=== PATIENT | female | born 2000 | race Caucasian/White ===

== ENCOUNTER 2020-04-27 15:19 | Emergency (ER) | payer OTHER, SELFPAY ==
[2020-04-27 15:32] VITALS: BP 134/81; PULSE 84; RESP 16; TEMP 37.4; O2SAT 100
--- NOTE | 2020-04-27 15:47 | ED.GENADULT ---
HPI - General Adult General Chief complaint: Upper Respiratory Infection Stated complaint: Stuffy Nose Time Seen by Provider: 04/27/20 15:24 History of Present Illness HPI narrative: This is a 19-year-old white female who presented to the urgent care today complaining of congestion, sore throat, nausea, poor appetite, nausea and chills. Patient noted about 4 days ago she started experiencing symptoms and took Tylenol at home with no relief patient noted that she did take her temperature was 97.8 but she has been having chills. She has also been having shortness of breath that worsened when she lies down she did note that she has a history of having shortness of breath while lying down due to congestion. The patient denies , CP, palpitation, extremity numbness, lightheadedness, dizziness, constipation, and diarrhea. Patient tested negative for strep and influenza which is saving the next Related Data Allergies Allergy/AdvReac Type Severity Reaction Status Date / Time No Known Allergies Allergy Verified 04/27/20 15:47 Review of Systems Review of Systems: All systems reviewed & are unremarkable except as noted in HPI and below (10 point system review) Exam Narrative: Exam Narrative: GENERAL: This is a well-nourished, well-developed patient, in no apparent distress. HEAD: normocephalic, atraumatic. EYES: PERRL. Sclera clear/white. Vision is grossly intact. Frontal sinus tenderness EARS: External ears normal, auditory canals clear and without drainage, TMs normal without perforation. Hearing grossly intact. NOSE: External nose normal with, 3 views, lumbar with rhinorrhea. THROAT: Mucous membranes moist, posterior pharynx clear. NECK: Neck supple, , masses or thyromegaly maxillary sinus tenderness CARDIOVASCULAR: Regular rate and rhythm without murmurs, gallops, or rubs. RESPIRATORY: Clear to auscultation. Breath sounds equal bilaterally. No wheezes, rales, or rhonchi. GASTROINTESTINAL: Abdomen soft, non-tender, nondistended. Bowel sounds are active. No hepato-splenomegaly, or palpable masses. No guarding. SKIN: warm, intact with no suspicious lesions or rash, good texture and turgor. NEURO: awake, alert, and oriented to person, place and time. There were no obvious focal neurologic abnormalities. Steady gait EXTREMITIES: Normal range of motion. No edema. No calf tenderness. Negative Homans sign bilaterally. BACK: Nontender without deformity or crepitance. No flank tenderness. Const: General: no acute distress Course Course Emergency Course: Patient will discharge with amoxicillin for 7 days and Sudafed Vital Signs Vital signs: Vital Signs Temperature 99.4 F 04/27/20 15:32 Pulse Rate 84 04/27/20 15:32 Respiratory Rate 16 04/27/20 15:32 Blood Pressure 134/81 04/27/20 15:32 Pulse Oximetry 100 04/27/20 15:32 Temperature 99.4 F 04/27/20 15:32 Pulse Rate 84 04/27/20 15:32 Respiratory Rate 16 04/27/20 15:32 Blood Pressure 134/81 04/27/20 15:32 Pulse Oximetry 100 04/27/20 15:32 Medical Decision Making Differential Diagnosis Differential Diagnosis: Upper respiratory infection/sinusitis/flu/strep Vital Signs Vital Signs: Vital Signs Temperature 99.4 F 04/27/20 15:32 Pulse Rate 84 04/27/20 15:32 Respiratory Rate 16 04/27/20 15:32 Blood Pressure 134/81 04/27/20 15:32 Pulse Oximetry 100 04/27/20 15:32 Temperature 99.4 F 04/27/20 15:32 Pulse Rate 84 04/27/20 15:32 Respiratory Rate 16 04/27/20 15:32 Blood Pressure 134/81 04/27/20 15:32 Pulse Oximetry 100 04/27/20 15:32 Lab Data Labs: Influenza A Screen Negative Reference Range: Negative Influenza B Screen Negative Reference Range: Negative Strep Screen Presumptive Negative *(Reference Range: Negative)* Discharge Plan Discha
== END 2020-04-27 16:04 | disposition home or self-care (01) ==
PROVIDERS: Emergency Provider Nurse Practitioner
DX: J01.10 Acute frontal sinusitis, unspecified (principal)
CPT/HCPCS: 87081; 87804; 87880; 99203; G0463

== ENCOUNTER 2020-08-30 19:37 | Emergency (ER) | payer OTHER, SELFPAY ==
[2020-08-30 19:47] VITALS: BP 154/84; PULSE 78; RESP 16; TEMP 37.2; O2SAT 100
--- NOTE | 2020-08-30 19:59 | ED.WOUNDLAC ---
HPI - Wound/Laceration General Chief Complaint: Wound/Laceration Stated Complaint: Cyst Source: patient Mode of arrival: ambulatory Limitations: no limitations History of Present Illness HPI narrative: Patient is a 20-year-old female who presents complaining of abscess to right groin. She reports abscess x1 week. Reports a history of abscesses in the past. She denies drainage. She reports warmth and tenderness. She denies all other complaints at this time. She has no allergies and no significant medical history. Related Data Allergies Allergy/AdvReac Type Severity Reaction Status Date / Time No Known Allergies Allergy Verified 04/27/20 15:47 Review of Systems Review of Systems: Narrative: CONSTITUTIONAL: Denies fever, chills, or sweats. EYES: Denies visual changes, redness, or discharge. ENT: Denies rhinorrhea, congestion, sore throat, or otalgia. CARDIOVASCULAR: Denies chest pain, palpitations, or edema. RESPIRATORY: Denies cough or dyspnea. GASTROINTESTINAL: Denies abdominal pain, nausea, vomiting, or diarrhea. GENITOURINARY: Denies dysuria or hematuria. SKIN: Abscess to right groin MUSCULOSKELETAL: Denies back pain, joint pain, or myalgia. NEUROLOGIC: Denies headache, numbness, dizziness, or weakness. PSYCHIATRIC: Denies anxiety or depression. [facility] Past Medical History Medical History (Updated 08/31/20 @ 00:00 by [facility]) No significant past medical history Surgical History Surgical History (Updated 08/30/20 @ 20:01 by AXEL Morton) No significant past surgical history Family History Family History (Updated 08/30/20 @ 20:01 by AXEL Morton) Other No significant family history Social History Social History (Updated 08/30/20 @ 20:01 by AXEL Morton) Smoking status: Never smoker Alcohol intake: never Substance use: never Living arrangements: with roommate(s) Occupation/Education: student Gender identity (if verbalized by the patient): Female Comments At the time of signature, I have reviewed and agree with nursing past medical, surgical, social, and family history unless otherwise noted. Please see nursing chart for further information. There is no relevant family history pertinent to the presenting complaint. Exam Narrative: Exam Narrative: GENERAL: Well-appearing, well-nourished, and in no acute distress. HEAD: Normocephalic, atraumatic. EYES: EOMI. No redness or drainage. Conjunctiva are normal. ENT: Mucous membranes pink and moist. CHEST: No respiratory distress. HEART: Regular rate and rhythm. MUSCULOSKELETAL: No bony tenderness. EXTREMITIES: Normal range of motion. No edema. SKIN: Approximate 5 x 3 cm abscess to right groin, positive fluctuance, no drainage noted NEURO: No focal deficits. Alert and oriented x3. Gait steady. PSYCH: Normal affect. No signs of depression or anxiety. Course Vital Signs Vital signs: Vital Signs Temperature 37.2 C 08/30/20 19:47 Pulse Rate 78 08/30/20 19:47 Respiratory Rate 16 08/30/20 19:47 Blood Pressure 154/84 H 08/30/20 19:47 Pulse Oximetry 100 08/30/20 19:47 Temperature 37.2 C 08/30/20 19:47 Pulse Rate 78 08/30/20 19:47 Respiratory Rate 16 08/30/20 19:47 Blood Pressure 154/84 H 08/30/20 19:47 Pulse Oximetry 100 08/30/20 19:47 Reviewed-patient is informed that they may have pre-hypertension or hypertension based on a blood pressure reading. I recommend the patient call the primary care provider listed on their discharge instructions or a physician of their choice this week to arrange follow-up for further evaluation of possible pre-hypertension or hypertension. Procedures Abscess I/D other: Date of Incision: 08/30/20 Time of Incision: 20:00 Side (if applicable): right Sedation/analgesia: none Local Anesthetic: lidocaine 1% Amount of anesthesia used (mL): 5 Technique: incised with #11 blade Amount of fluid ex
== END 2020-08-30 20:14 | disposition home or self-care (01) ==
PROVIDERS: Emergency Provider Nurse Practitioner
DX: L02.214 Cutaneous abscess of groin (principal)
CPT/HCPCS: 10060; 99213; G0463

== ENCOUNTER 2021-05-19 14:11 | Emergency (ER) | payer OTHER, SELFPAY ==
[2021-05-19 14:18] VITALS: BP 143/92; PULSE 87; RESP 18; TEMP 37.2; O2SAT 100
--- NOTE | 2021-05-19 14:19 | ED.BACK ---
HPI - Back Pain/Injury General Chief Complaint: Back Pain/Injury Stated Complaint: Back Pain Time Seen by Provider: 05/19/21 14:19 Source: patient, RN notes reviewed and old records reviewed Mode of arrival: ambulatory Limitations: no limitations History of Present Illness HPI Narrative: 21-year-old female presents to the [facility] with complaints of lower back pain for several days. Patient states is been getting worse over the last week or so. Has been doing pottery with a pottery wheel and bent over and every time the pain increases, worse on the right than the left. No saddle anesthesia. No loss or retention of bowel or bladder. States occasionally she has shooting pain down the lateral aspect right leg. Denies chest pain, abdominal pain. No urinary symptoms. Related Data Home Medications Medication Instructions Recorded Confirmed adalimumab [Humira(CF) Pen] 80 mg SUBCUT DIRECTED 05/19/21 05/19/21 fluticasone propionate 50 mcg INTRANASAL DIRECTED 05/19/21 05/19/21 Allergies Allergy/AdvReac Type Severity Reaction Status Date / Time No Known Allergies Allergy Verified 05/19/21 14:15 Review of Systems Review of Systems: All systems reviewed & are unremarkable except as noted in HPI and below Constitutional: Constitutional: Reports no additional constitutional complaints, Denies chills and Denies fever(s) Eyes: Eyes: Reports no additional eye complaints ENT: Reports system reviewed and no additional complaints, except as documented Cardiovascular: Cardiovascular: Reports no additional cardiovascular complaints Gastrointestinal: Gastrointestinal: Reports no additional gastrointestinal complaints, Denies abdominal pain, Denies diarrhea, Denies nausea and Denies vomiting Genitourinary: Genitourinary: Reports no additional female genitourinary complaints, Denies nocturia, Denies dysuria, Denies flank pain and Denies urinary incontinence Musculoskeletal: Musculoskeletal: Reports as per HPI and Reports back pain Integumentary/Breasts: Skin/Breast: Reports system reviewed and no additional complaints, except as docu Neurologic: Reports system reviewed and no additional complaints, except as documented Psychiatric: Psychiatric: Reports no additional psychiatric complaints Allergic/Immunologic: Allergic/Immunologic: Reports no additional allergic/immunologic complaints PMFSH Past Medical History Medical History (Updated 05/19/21 @ 14:26 by Cayla Torres) No significant past medical history Surgical History Surgical History No significant past surgical history Family History Family History Other No significant family history Social History Social History Smoking status: Never smoker Alcohol intake: never Substance use: never Gender identity (if verbalized by the patient): Female Comments At the time of my signature, I reviewed and agree with the nursing past medical, surgical, social, and family history. There is no relevant family history pertinent to the patient complaint. Exam Const: General: no acute distress and alert Nutritional Appearance: well nourished and obese Orientation/consciousness: patient oriented x3 Limitations: no limitations HENMT: Head: normal to inspection Eyes: Pupils: Equal, round and reactive pupils present Neck: Neck: normal visual inspection, no lymphadenopathy and no meningeal signs Chest: Chest palpation & inspection: normal inspection of the chest Resp: Effort & Inspection: normal respiratory effort and no use of accessory muscles Auscultation: clear to auscultation bilaterally, no crackles, no rales, no rhonchi and no wheezes Cardio: Rate: regular rate Rhythm: regular rhythm GI: GI Palp: Yes Soft to palpation, No Tenderness to palpation present (GI), No Guarding due to palpation present (GI) an
== END 2021-05-19 14:30 | disposition home or self-care (01) ==
PROVIDERS: Emergency Provider Nurse Practitioner
DX: M54.42 Lumbago with sciatica, left side (principal)
CPT/HCPCS: 99213; G0463

== ENCOUNTER 2021-10-19 12:47 | Emergency (ER) | payer OTHER, SELFPAY ==
--- NOTE | ~2021-10-19 | XR_ITS ---
EXAMINATION: XR shoulder RT min 2V INDICATION: Right shoulder pain TECHNIQUE: Three views of the right shoulder are submitted. COMPARISON: None FINDINGS: Normal alignment. No fracture. Glenohumeral and acromioclavicular joint spaces are normal. Soft tissues are unremarkable. IMPRESSION: 1. No acute osseous abnormality. Reviewed, dictated and finalized at location F.
[2021-10-19 13:01] VITALS: PULSE 78; RESP 20; TEMP 37.1; O2SAT 100
--- NOTE | 2021-10-19 13:04 | ED.GENADULT ---
HPI - General Adult General Chief complaint: Extremity Problem,Nontraumatic Stated complaint: Right Shoulder Pain Time Seen by Provider: 10/19/21 13:05 Source: patient Mode of arrival: ambulatory Limitations: no limitations History of Present Illness HPI narrative: 21 y/o female presented for c/o right posterior shoulder/upper back pain after stretching this morning. States she stretched arms over head and behind back when the sharp pain started. Pain is 8/10, worse with any movement but not relieved at rest. Denies numbness, tingling or weakness of the RUE but endorses pain and is guarding. Has not taken anything for pain. Related Data Home Medications Medication Instructions Recorded Confirmed adalimumab [Humira(CF) Pen] 80 mg SUBCUT DIRECTED 05/19/21 10/19/21 bupropion HCl 300 mg PO BID 10/19/21 10/19/21 cetirizine mg 10/19/21 fluticasone propionate INTRANASAL 10/19/21 10/19/21 hydroxyzine HCl 10 mg PO DIRECTED 10/19/21 10/19/21 Allergies Allergy/AdvReac Type Severity Reaction Status Date / Time No Known Allergies Allergy Verified 10/19/21 12:50 Review of Systems Review of Systems: CONSTITUTIONAL: Denies body aches, fever, chills EYES: Denies visual changes ENT: Denies rhinorrhea, congestion CARDIOVASCULAR: Denies chest pain, palpitations, or edema. RESPIRATORY: Denies cough or dyspnea. GASTROINTESTINAL: Denies abdominal pain, nausea, vomiting, or diarrhea. SKIN: Denies rash, itching, or wounds. MUSCULOSKELETAL: right upper back pain NEUROLOGIC: Denies headache, numbness, tingling, or weakness. PSYCH: Denies depression or anxiety. All systems reviewed & are unremarkable except as noted in HPI and below PMFSH Past Medical History Medical History No significant past medical history Surgical History Surgical History No significant past surgical history Family History Family History Other No significant family history Social History Social History Smoking status: Never smoker Alcohol intake: never Substance use: never Gender identity (if verbalized by the patient): Female Comments At time of signature, I have reviewed and agree with nursing past medical, surgical, social and family history unless otherwise noted. Please see nursing chart for further information. There is no relevant family history pertinent to the presenting complaint Exam Narrative: GENERAL appears in pain, no acute distress. HEAD: Normocephalic, atraumatic. EYES: conjunctivae clear NECK: Supple. CHEST: Speaks in full sentences. No respiratory distress. HEART: Regular rate and rhythm. Normal and equal peripheral pulses. EXTREMITIES: RUE has limited active ROM at shoulder due to pain at posterior shoulder/ trap area. Tender with minimal palpation. No edema, lesions, or ecchymosis. No obvious deformity; alignment normal, pulse palpable and equal bilaterally, skin warm, dry, pink. Capillary refill less than 3 seconds. SKIN: Warm, dry, no rash. NEURO: Alert and oriented x3. PSYCH: Normal mood and affect Course Course Emergency Course: Patient is aware of diagnosis, understands and agrees to treatment plan. Anticipatory guidance given. Patient agrees to follow-up as directed and is aware of reasons to seek care at the emergency department. Portions of this record may have been created with voice recognition software Level of Care: Express Care Visit Vital Signs Vital signs: Vital Signs Temperature 98.8 F 10/19/21 13:01 Pulse Rate 78 10/19/21 13:01 Respiratory Rate 20 10/19/21 13:01 Pulse Oximetry 100 10/19/21 13:01 Temperature 98.8 F 10/19/21 13:01 Pulse Rate 78 10/19/21 13:01 Respiratory Rate 20 10/19/21 13:01 Pulse Oximetry 100 10/19/21 13:01
[2021-10-19] MEDS: KETOROLAC (*BKC) 60 MG/2 ML VIAL IM (13:19)
[2021-10-19] MEDS: ACETAMINOPHEN 500 MG TABLET 1000 MG PO (13:20)
== END 2021-10-19 14:30 | disposition home or self-care (01) ==
PROVIDERS: Emergency Provider Nurse Practitioner Family
DX: M25.511 Pain in right shoulder (principal)
CPT/HCPCS: 73030; 96372; 99213; A9270; G0463; J1885

== ENCOUNTER 2023-03-18 22:33 | Emergency (ER) | payer OTHER, SELFPAY ==
--- NOTE | ~2023-03-18 | CT_ITS ---
CT Facial Bones Clinical Indication: Head injury Technique: Contiguous axial scans were obtained through the facial bones followed by coronal and sagi ttal reconstructions. Dose reduction technique was used on this scan by utilizing automated exposure control and iterative reconstruction technique. The dose-length product (DLP) was 329.32 mGy-cm. Findings: Bilateral nasal bone fractures are present. No other fracture or dislocation. The visualize d paranasal sinuses are clear. Intraorbital soft tissues appear normal. Impression: Bilateral nasal bone fractures. Reviewed, dictated and finalized at location M. Impression: Bilateral nasal bone fractures.
--- NOTE | ~2023-03-18 | CT_ITS ---
Non-contrast Head CT History: Syncope, head injury Technique: Axial non-contrast imaging of the brain was performed. Dose reduction technique was used on this scan by utilizing automated exposure control and iterative reconstruction technique. The dose -length product (DLP) was 605.33 mGy-cm. Findings: There is no evidence of intracranial hemorrhage, mass lesion, or acute infarct. Brain par enchyma appears normal. The ventricles and subarachnoid spaces are normal in size. The calvarium ap pears normal. The visualized paranasal sinuses and mastoid air cells are clear. Impression: No significant abnormality seen. Reviewed, dictated and finalized at location . Impression: No significant abnormality seen.
--- NOTE | 2023-03-18 22:35 | ECG_ITS ---
Measurements Intervals [place] Rate: 51 P: 67 VA: 167 QRS: 42 QRSD: 103 T: 36 QT: 403 QTc: 374 Interpretive Statements SINUS BRADYCARDIA BASELINE ARTIFACT- I, II, III, AVR, AVL, AVF BORDERLINE ECG NO PREVIOUS ECG AVAILABLE FOR COMPARISON Electronically Signed On 03-19-2023 6:34:04 CDT by Cole Oden D.O.
[2023-03-18 22:37] VITALS: BP 103/49; PULSE 68; RESP 16; TEMP 36.2; O2SAT 100
--- NOTE | 2023-03-18 22:57 | ED.SYNCOPE ---
HPI - Syncope General Chief Complaint: Syncope Stated Complaint: syncopal episode- hit head Time Seen by Provider: 03/18/23 22:43 History of Present Illness HPI narrative: Patient presents to the emergency department with her friend from home. Patient cut her right palm and had a vasovagal syncopal episode. Patient fell onto her face. She was trying to sit down on a chair because she felt lightheaded when the rolling chair went out from underneath her. Patient had a bloody nose and cut her lip. She is still feeling very lightheaded. Pale appearing. Patient states she did eat dinner few hours prior to arrival Related Data Home Medications Medication Instructions Recorded Confirmed adalimumab 80 mg/0.8 mL 80 mg subcut DIRECTED 05/19/21 10/19/21 subcutaneous pen kit (Humira(CF) Pen) bupropion HCl 300 mg 24 hr tablet, 300 mg PO BID 10/19/21 10/19/21 extended release cetirizine 10 mg tablet mg 10/19/21 fluticasone propionate 50 intranasal 10/19/21 10/19/21 mcg/actuation nasal spray,suspension hydroxyzine HCl 10 mg tablet 10 mg PO DIRECTED 10/19/21 10/19/21 Allergies Allergy/AdvReac Type Severity Reaction Status Date / Time No Known Allergies Allergy Verified 10/19/21 12:50 Review of Systems Review of Systems: Review of systems negative except what is documented in the HPI [facility] Past Medical History Medical History No significant past medical history Surgical History Surgical History No significant past surgical history Family History Family History Other No significant family history Social History Social History Smoking status: Never smoker Alcohol intake: never Substance use: never Living arrangements: with roommate(s) Occupation/Education: student Gender identity (if verbalized by the patient): Female Exam Narrative: GENERAL: Well-appearing, well-nourished, and in no acute distress. Pale HEAD: Normocephalic, . EYES: PERRLA and EOMI. ENT: Nares clear, no rhinorrhea or epistaxis. Mucous membranes moist. Nose swollen, dried blood both nares NECK: Supple. CHEST: Clear to auscultation. No respiratory distress. HEART: Regular rate and rhythm. ABDOMEN: Soft, nontender, nondistended. EXTREMITIES: Normal range of motion. No edema. SKIN: Warm, dry, no rash. Superficial small laceration right thenar NEURO: No focal deficits. Alert and oriented x3. PSYCH: Normal mood and affect. Course Course Emergency Course: Differential diagnosis includes but not limited to vasovagal syncope, dehydration, nasal bone fracture Telemetry ordered due to syncope to evaluate for dysrhythmias. Evaluated by myself. Rhythm sinus hill Rate 53 Vital Signs Vital signs: Vital Signs Temperature 36.2 C L 03/18/23 22:37 Pulse Rate 68 03/18/23 22:37 Respiratory Rate 16 03/18/23 22:37 Blood Pressure 103/49 L 03/18/23 22:37 Pulse Oximetry 100 03/18/23 22:37 Oxygen Delivery Room Air 03/18/23 22:37 Temperature 36.2 C L 03/18/23 22:37 Pulse Rate 83 03/19/23 00:34 Respiratory Rate 12 03/19/23 00:34 Blood Pressure 116/58 L 03/19/23 00:34 Pulse Oximetry 100 03/19/23 00:34 Oxygen Delivery Room Air 03/18/23 23:21 MDM - Syncope MDM Narrative Medical decision making narrative: Patient is feeling better, no longer lightheaded. However has nose and facial pain despite p.o. pain medication. Will order IM morphine then plan for discharge. Nasal bone fracture present although unknown details due to preliminary radiology read. Patient advised to follow-up with plastic surgery to ensure healing well. She is eating and drinking without vomiting Lab Data Labs: UCG Bedside Result Negative
[2023-03-18 23:21] VITALS: O2SAT 100
--- NOTE | 2023-03-18 23:21 | PC.NURSE ---
Assumed care of pt from KRISTIN Ortiz at this time.
[2023-03-18] MEDS: HYDROcodone/acetaminophen (*CRX) 5-325 MG TABLET 1 TAB PO (23:54)
[2023-03-18 23:57] VITALS: BP 114/59; PULSE 80; RESP 20; O2SAT 100
[2023-03-19 00:34] VITALS: BP 116/58; PULSE 83; RESP 12; O2SAT 100
[2023-03-19] MEDS: MORPHINE SULFATE INJ (*CRX) 10 MG/ML AMP IM (01:02)
[2023-03-19 01:31] VITALS: BP 102/59; PULSE 64; RESP 19; O2SAT 98
== END 2023-03-19 01:34 | disposition home or self-care (01) ==
PROVIDERS: Emergency Provider Emergency Medicine
DX: S02.2XXA Fracture of nasal bones, initial encounter for closed fracture (principal); S09.90XA Unspecified injury of head, initial encounter; S61.411A Laceration without foreign body of right hand, initial encounter; W45.8XXA Other foreign body or object entering through skin, initial encounter; R55 Syncope and collapse; W18.39XA Other fall on same level, initial encounter; Z79.620 Long term (current) use of immunosuppressive biologic
CPT/HCPCS: 70450; 70486; 81025; 93005; 96372; 99284; A9270; J2270

== ENCOUNTER 2023-03-28 00:37 | Day surgery (SDC) | payer OTHER, SELFPAY ==
[2023-03-26 10:20] VITALS: BMI 34.9
--- NOTE | 2023-03-26 10:24 | PC.NURSE ---
Report to the Outpatient Waiting Room, entrance under the green pavilion located off [facility], at time 0900 on date 03/28/23. Planned Procedure Time: 1100. Time changes happen often and if your time is changed the preop area will call you the afternoon before. - You and your visitor will be asked to self-screen and do not enter if you have any COVID symptoms. - A mask is optional within the hospital at this time. Patients may have clear liquids (water, carbonated beverages, clear teas, apple juice) until 3 hours prior to surgery with a maximum of 20 ounces. - No food from midnight until time of surgery Take the following medications with a SIP of water the morning of surgery: NONE DO NOT STOP ANY OF YOUR OTHER PRESCRIPTION MEDICATIONS PRIOR TO SURGERY ?EXCEPT THE FOLLOWING Medications to discontinue per physician: N/A Date to take last dose: N/A Please no make-up, nail estonian, hairspray, perfume, deodorant, or body powder the day of surgery. No jewelry (including any body piercings) or valuables the day of surgery, leave them at home. Please take a shower or bath the night before, or the morning of, surgery with an antibacterial soap. Wear comfortable, loose fitting clothing. - Jewelry must be removed prior to entering the operating room. Rings and piercings that are not removed may be cut off. - The hospital will not accept responsibility for valuables. - Please leave all valuables, including medications, at home the day of surgery. If you are going home after surgery, a licensed uke driver must drive you home. - NO public transportation without another adult if you receive anesthesia. - We recommend that an adult stay with you for 24 hours following discharge. - We also recommend that you do not drive, make important decision, drink alcoholic beverages, or take any drugs that were not prescribed by your health care provider for at least 24 hours after your discharge time. Follow any additional instructions given to you from your surgeon. If you or anyone in your household have experienced Covid symptoms in the past week, please notify your surgeon or the nurse liaison at the phone number below for possible testing. Telephone instructions given to PT - SUMAN ARRIAGA and asked if any additional questions and then verbalized understanding. Patient advised to call surgeon office or pre surgery nurse liaison [phone] if any additional questions.
[2023-03-28] VITALS (7 sets, daily range): BP systolic 105–147; BP diastolic 62–97; PULSE 50–88; RESP 14–20; TEMP 36.1; O2SAT 96–100
--- NOTE | 2023-03-28 07:20 | WPDHPUPDATE1 ---
History and Physical Update Update Date/Time: 03/28/23 07:20 History and Physical has been reviewed, including an updated exam of the patient. There are NO changes in the patient's condition. Risks, benefits, and alternatives have been discussed and questions answered. Patient agrees to proceed with procedure.
[2023-03-28] MEDS: OXYMETAZOLINE HCL 0.05% NAS 15 ML BTL (*BKC) 1 SPRAY NASAL (09:41)
--- NOTE | 2023-03-28 09:45 | P.PNAN_ITS ---
Anes - Initial Pre Proc Eval Procedure: Operation Date: 03/28/23 11:00 Proposed Procedures p Closed Nose Reduction - Len Bejarano MD Date/Time: 03/28/23 09:45 Surgeon: Len Bejarano MD Pre Op Diagnosis: nasal fracture Patient Data Age: 22 Gender: F Height: 1.69 m Weight: 98.8 kg Last Vital Signs Temp 97.0 F L 03/28/23 09:29 Pulse 88 03/28/23 09:29 Resp 20 03/28/23 09:29 BP 147/97 H 03/28/23 09:29 Pulse Ox 100 03/28/23 09:29 O2 Del Method Room Air 03/28/23 09:29 Allergies Allergy/AdvReac Type Severity Reaction Status Date / Time No Known Allergies Allergy Verified 03/28/23 09:25 Home Medications Medication Instructions Recorded Confirmed Type hydroxyzine HCl 10 mg tablet 10 mg PO HS 10/19/21 03/26/23 History modafinil 100 mg tablet (Provigil) 200 mg PO DAILY 03/26/23 03/26/23 History Patient hx anesthesia problems: none Family hx anesthesia problems: none Results Review: All pre-operative results and documents have been reviewed as part of the pre- operative evaluation. [facility] Past Medical History Medical History No significant past medical history Surgical History Surgical History No significant past surgical history Family History Family History Other No significant family history Social History Social History Smoking status: Current every day smoker Tobacco type: e-cigarettes/vaping Alcohol intake: never Substance use: current Substance use type: marijuana Living arrangements: with family Occupation/Education: student Gender identity (if verbalized by the patient): Female Spiritual care concerns: No Anes - Eval Final PreProcedure Day of Procedure 03/28/23 09:45 Patient weight: obese Heart: regular rate and rhythm Lungs: clear to auscultation Neurological: alert and oriented Last oral intake: >/= 8 hours ASA classification: II Emergent: no Anesthetic plan: proceed Anesthesia type and monitoring: general ETT and standard monitoring Results Review: All pre-operative results and documents have been reviewed as part of the pre- operative evaluation. Informed Consent: The patient's anesthetic plan and its attendant risks and benefits were discussed with the patient/family/POA. Questions were solicited and answers provided to the satisfaction of the patient/family/POA.
[2023-03-28] MEDS: LACTATED RINGERS 1,000 ML 150 ML IV CONT (10:08)
--- NOTE | 2023-03-28 11:27 | W.PM.PROC2 ---
Procedure Note - Detailed Date of Procedure 03/28/23 Pre-op Diagnosis nasal fracture Post-op Diagnosis Same Procedure Performed Closed nasal fracture reduction Surgeon Len Bejarano MD Anesthesia MAC Description of Procedure The patient was greeted in the holding area. The problem with her nose we confirmed there was a light reflex curved to the left and decreased airway patency on the right. This understands will be straightening that from within. She was taken to the operating room where she was placed supine on the operating table. She was given sedation anesthesia with an oral airway and mask. The 2 vestibules were examined with a speculum. There was no bleeding. The septum appears straight the area of the internal valve was narrow were on the right than the left. The Killian elevator was inserted and pressure was applied dorsally and to the patient's right side this was done also on the left side. The light reflex was corrected. Speculum evaluation of the vestibule then indicated the 2 airways seemed symmetrical. There was no bleeding. Benzoin was applied to the skin over the nose and anterior cheeks 1/4 inch brown tape was applied to the nose transversely at 3 locations. A lymphoma splint was bent and applied to the face and Steri-Strips were placed to hold that in position. She tolerated this procedure well she was discharged from the operating room stable condition. Estimated Blood Loss 0 Packing No Complications No immediate complications Condition Stable Disposition Same day
[2023-03-28] MEDS: fentaNYL CITRATE INJ (*CRX) 100 MCG/2 ML VIAL 25 MCG IV PUSH ×6 (11:37→12:13)
[2023-03-28] MEDS: oxyCODONE HCL (*CRX) 5 MG TAB IR PO (12:11)
== END 2023-03-28 13:19 | disposition home or self-care (01) ==
PROVIDERS: Visit Provider Plastic Surgery
PROC: 0NSBXZZ Reposition Nasal Bone, External Approach (ICD-10-PCS; CPT 21315; principal; 2023-03-28 11:00)
DX: S02.2XXA Fracture of nasal bones, initial encounter for closed fracture (principal); W18.39XA Other fall on same level, initial encounter; F17.290 Nicotine dependence, other tobacco product, uncomplicated; F12.90 Cannabis use, unspecified, uncomplicated; E66.9 Obesity, unspecified; Z68.34 Body mass index [BMI] 34.0-34.9, adult
CPT/HCPCS: 21320; A9270; J1100; J2250; J2405; J2704; J3010; J7120

== ENCOUNTER 2023-07-07 14:52 | Emergency (ER) | payer OTHER, SELFPAY ==
[2023-07-07 14:57] VITALS: BP 112/86; PULSE 72; RESP 16; TEMP 37.9; O2SAT 100
--- NOTE | 2023-07-07 15:26 | ED.URI ---
HPI - URI/Sore Throat General Chief Complaint: Upper Respiratory Infection Stated Complaint: Shortness of breath;Chest pain Time Seen by Provider: 07/07/23 15:26 Source: patient, RN notes reviewed and old records reviewed Mode of arrival: ambulatory Limitations: no limitations History of Present Illness HPI Narrative: 23-year-old [facility] with complaints cough, congestion and fevers. Patient was evaluated on both July 04 and July 05 at [place] [facility]. Patient was prescribed Augmentin, prednisone and given albuterol inhaler. Patient comes to the [facility] with concerns that she is not better after starting the antibiotic and taking the prednisone for 2 days. Patient is running a low-grade fever. Has not been taking Tylenol or Motrin for aches pains or fevers Patient states the cough started 2 weeks ago, 1 week ago started with a fever Treatments prior to arrival: antibiotics (augmentin) and other (Albuterol and prednisone) Related Data Home Medications Medication Instructions Recorded Confirmed modafinil 100 mg tablet (Provigil) 200 mg PO DAILY 03/26/23 03/26/23 albuterol sulfate 90 mcg/actuation inhalation 07/07/23 aerosol inhaler amoxicillin 875 mg-potassium tablet 07/07/23 clavulanate 125 mg tablet prednisone 20 mg tablet mg 07/07/23 Allergies Allergy/AdvReac Type Severity Reaction Status Date / Time No Known Allergies Allergy Verified 03/28/23 09:25 Review of Systems Review of Systems: All systems reviewed & are unremarkable except as noted in HPI and below Constitutional: Constitutional: Reports as per HPI, Reports chills, Reports fatigue and Reports fever(s) Eyes: Eyes: Reports no additional eye complaints ENT: Reports as per HPI Cardiovascular: Cardiovascular: Reports no additional cardiovascular complaints, Denies chest pain and Denies dyspnea Respiratory: Respiratory: Reports as per HPI, Denies chest congestion, Reports cough and Denies dyspnea Gastrointestinal: Gastrointestinal: Reports no additional gastrointestinal complaints, Denies abdominal pain, Denies nausea and Denies vomiting Musculoskeletal: Musculoskeletal: Reports no additional musculoskeletal complaints Integumentary/Breasts: Skin/Breast: Reports system reviewed and no additional complaints, except as docu Neurologic: Reports system reviewed and no additional complaints, except as documented Psychiatric: Psychiatric: Reports no additional psychiatric complaints Allergic/Immunologic: Allergic/Immunologic: Reports no additional allergic/immunologic complaints PMFSH Past Medical History Medical History No significant past medical history Surgical History Surgical History No significant past surgical history Family History Family History Other No significant family history Social History Social History Smoking status: Current every day smoker Tobacco type: e-cigarettes/vaping Alcohol intake: never Substance use: current Substance use type: marijuana Living arrangements: with family Occupation/Education: student Gender identity (if verbalized by the patient): Female Spiritual care concerns: No Comments At the time of my signature, I reviewed and agree with the nursing past medical, surgical, social, and family history. There is no relevant family history pertinent to the patient complaint. Exam Const: General: cooperative, healthy appearing, no acute distress, well developed, alert, uncomfortable and well nourished Nutritional Appearance: well nourished and obese Orientation/consciousness: patient oriented x3 Limitations: no limitations HENMT: Head: normal to inspection Ears: hearing grossly normal bilaterally, external ears normal, T
== END 2023-07-07 15:44 | disposition home or self-care (01) ==
PROVIDERS: Emergency Provider Nurse Practitioner
DX: J40 Bronchitis, not specified as acute or chronic (principal); J06.9 Acute upper respiratory infection, unspecified; F17.290 Nicotine dependence, other tobacco product, uncomplicated; F12.90 Cannabis use, unspecified, uncomplicated
CPT/HCPCS: 99211; G0463

== ENCOUNTER 2024-02-02 08:23 | Emergency (ER) | payer OTHER, SELFPAY ==
--- NOTE | ~2024-02-02 | XR_ITS ---
EXAMINATION: XR thoracic spine 3V DATE: 02/02/2024 09:21 INDICATION: Left mid back pain. TECHNIQUE: 3 views of the thoracic spine on 4 radiographs were obtained. COMPARISON: None. FINDINGS: Bone alignment is normal. Vertebral body heights are normal. Intervertebral disc heights ar e normal. The facet joints are unremarkable. IMPRESSION: 1. No etiology for the patient's symptoms. Reviewed, dictated and finalized at location A.
[2024-02-02 08:31] VITALS: BP 136/76; PULSE 82; RESP 16; TEMP 36.6; O2SAT 99
--- NOTE | 2024-02-02 09:08 | ED.BACK ---
HPI - Back Pain/Injury General Chief Complaint: Back Pain/Injury Stated Complaint: Injury to Back Source: patient Mode of arrival: ambulatory Limitations: no limitations History of Present Illness HPI Narrative: Patient presents for evaluation of back pain since yesterday. She indicates 2 days ago she was lifting tile at a hardware store. She believes she injured her back in the process. Pain is in the thoracic spinal region, described as burning and rated 7/10 in severity. She has tingling in her LUE. She denies neck pain. She applied Icy Hot and took tylenol with some improvement in her symptoms thereafter. Related Data Home Medications Medication Instructions Recorded Confirmed modafinil 100 mg tablet (Provigil) 200 mg PO DAILY 03/26/23 02/02/24 buspirone 10 mg tablet 10 mg PO BID 02/02/24 02/02/24 copper 380 square mm intrauterine 1 device intrauterine ONCE 02/02/24 02/02/24 device (ParaGard T 380A) Allergies Allergy/AdvReac Type Severity Reaction Status Date / Time No Known Allergies Allergy Verified 02/02/24 08:33 Review of Systems Review of Systems: CONSTITUTIONAL: Denies fever, chills, or sweats. EYES: Denies visual changes, redness, or discharge. ENT: Denies rhinorrhea, congestion, sore throat, or otalgia. CARDIOVASCULAR: Denies chest pain, palpitations, or edema. RESPIRATORY: Denies cough or dyspnea. GASTROINTESTINAL: Denies abdominal pain, nausea, vomiting, or diarrhea. GENITOURINARY: Denies dysuria or hematuria. SKIN: Denies rash or itching. MUSCULOSKELETAL: Reports back pain. Denies joint pain, or myalgia. NEUROLOGIC: Reports tingling in LUE. Denies headache, dizziness, or weakness. PSYCHIATRIC: Denies anxiety or depression. [facility] Past Medical History Medical History No significant past medical history Surgical History Surgical History No significant past surgical history Family History Family History Mother Family history non-contributory Social History Social History (Reviewed 02/02/24 @ 09:12 by Yazan Santiago, [facility], ) Smoking status: Current every day smoker Tobacco type: e-cigarettes/vaping Alcohol intake: never Substance use: current Substance use type: marijuana Living arrangements: with family Occupation/Education: student Gender identity (if verbalized by the patient): Female Spiritual care concerns: No Exam Narrative: GENERAL: Well-appearing, well-nourished, and in no acute distress. HEAD: Normocephalic, atraumatic. EYES: PERRLA and EOMI. ENT: Nares clear, no rhinorrhea or epistaxis. Mucous membranes moist. Oropharynx without tonsillar hypertrophy exudate or other lesions. Bilateral TMs pearly padilla nonbulging NECK: Supple. No adenopathy or masses. No carotid bruits or JVD CHEST: Clear to auscultation. No respiratory distress. No wheezes rales or rhonchi HEART: Regular rate and rhythm. No murmur heard. Normal peripheral pulses. ABDOMEN: Soft, nontender, nondistended, normal active bowel sounds. EXTREMITIES: Normal range of motion. No edema. BACK: Tenderness diffusely in thoracic spinal region SKIN: Warm, dry, no rash. NEURO: No focal deficits. Alert and oriented x3. PSYCH: Normal mood and affect. Course Course Emergency Course: This is a 23-year-old female who presented for evaluation of back pain. X-ray was obtained was negative. Exam is consistent with strain. Discharge with Flexeril and ibuprofen. Follow-up with primary provider. Go to the ER for worsening symptoms. Patient in agreement with plan of care. Level of Care: Express Care Visit Vital Signs Vital signs: Vital Signs Temperature 36.6 C 02/02/24 08:31 Pulse Rate 82 02/02/24 08:31 Respiratory Rate 16 02/02/24 08:31 Blood Pressure 136/76 02/02/24 08:31 Pulse Oxime
== END 2024-02-02 09:35 | disposition home or self-care (01) ==
PROVIDERS: Emergency Provider Nurse Practitioner
DX: S29.012A Strain of muscle and tendon of back wall of thorax, initial encounter (principal); X50.9XXA Other and unspecified overexertion or strenuous movements or postures, initial encounter; F17.290 Nicotine dependence, other tobacco product, uncomplicated; F12.90 Cannabis use, unspecified, uncomplicated
CPT/HCPCS: 72072; 99213; G0463